=== PATIENT | male | born 1965 | race Caucasian/White ===

== ENCOUNTER 2019-08-04 11:25 | Emergency (ER) | payer OTHER, BC ==
--- NOTE | 2019-08-04 12:16 | EDM.PDOC ---
ED HPI GENERAL MEDICAL PROBLEM - General Chief Complaint: Head Injury Stated Complaint: RT EYEBROW INJURY Time Seen by Provider: 08/04/19 11:47 Source of Information: Reports: Patient, Old Records (that he provided in room) History Limitations: Reports: No Limitations - History of Present Illness INITIAL COMMENTS - FREE TEXT/NARRATIVE: Patient is a 53-year-old male who presents to the ED for the evaluation of a head injury. The patient states that yesterday while at work, at around 8 AM. 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 Patient notes that he was wearing his hard hat, he denies any loss of consciousness, or blacking out. He was evaluated for his laceration yesterday, and this was closed with Steri-Strips. He went to bed last night okay, and woke up this morning, feeling worse, with a headache, some dizziness when standing up or sitting down, a little bit of nausea, but no vomiting, no blurred vision or double vision. He denies being on any sort of blood thinners. He went to a [facility] [place], and was evaluated again by a physician for the injury, and he was directed to come to the ER for a CT scan. Patient is alert and oriented in the room, however at time of triage his pulse is in the upper 40s, he states his normal pulse is in the mid 50s to lower 60s usually. He denies any chest pain or shortness of breath. He notes he does have a primary care provider in his home town, and states he recently had a normal physical. - Related Data Allergies Allergy/AdvReac Type Severity Reaction Status Date / Time No Known Allergies Allergy Verified 08/04/19 11:54 Home Meds: Home Meds Escitalopram [Lexapro] 10 mg PO DAILY 08/04/19 [History] Fexofenadine [Ary] 60 mg PO DAILY 08/04/19 [History] Montelukast [Singulair] 10 mg PO DAILY 08/04/19 [History] Past Medical History Cardiovascular History: Reports: None Respiratory History: Reports: None Genitourinary History: Reports: None Musculoskeletal History: Reports: None Neurological History: Reports: None Psychiatric History: Reports: None Endocrine/Metabolic History: Reports: None Hematologic History: Reports: None Immunologic History: Reports: None Oncologic (Cancer) History: Reports: None Dermatologic History: Reports: None - Infectious Disease History Infectious Disease History: Reports: None - Past Surgical History Head Surgeries/Procedures: Reports: None HEENT Surgical History: Reports: Naso-Sinus Surgery GI Surgical History: Reports: Appendectomy, Hernia Repair/Other Social & Family History - Tobacco Use Smoking Status *Q: Current Every Day Smoker Years of Tobacco use: 35 Packs/Tins Daily: 0.5 - Caffeine Use Caffeine Use: Reports: Coffee - Recreational Drug Use Recreational Drug Use: No ED ROS GENERAL - Review of Systems Review Of Systems: See Below Constitutional: Denies: Fever, Chills HEENT: Reports: No Symptoms Respiratory: Denies: Shortness of Breath Cardiovascular: Denies: Chest Pain Endocrine: Reports: No Symptoms GI/Abdominal: Reports: Nausea. Denies: Abdominal Pain, Vomiting : Reports: No Symptoms Musculoskeletal: Reports: No Symptoms Skin: Reports: Wound (wound to R medial eyebrow, intact with steri strips) Neurological: Reports: Dizziness, Headache. Denies: Confusion, Seizure, Syncope , Trouble Speaking, Difficulty Walking Psychiatric: Reports: No Symptoms Hematologic/Lymphatic: Reports: No Symptoms Immunologic: Reports: No Symptoms ED EXAM, HEAD INJURY - Physical Exam Exam: See Below Exam Limited By: No Limitations General Appearance: Alert, WD/WN, No Apparent Distress Head: Normocephalic, Facial Lacerations (R medial eyebrow laceration intact with steri-strips). No: Joyner's Sign, Raccoon Eyes Nexus Criteria: No: Posterior, Midline Cervical Tenderness, Evidence of Intoxication, Altered Level of Consciousness, Focal Neurological Deficit, Painful Distraction Injuries Eyes: Bilateral Eye: EOMI, Normal Inspection, PERRL Ears: Normal External Exam, Normal Canal, Hearing Grossly Normal, Normal TMs Nose: Normal Inspection Throat/Mouth: Normal Inspection, Normal Lips, Normal Teeth, Normal Gums, Normal Oropharynx, Normal Voice, No Airway Compromise Neck: Non-Tender, Full Range of Motion, Normal Alignment, Normal Inspection Respiratory: No Respiratory Distress, Lungs Clear, Normal Breath Sounds, No Accessory Muscle Use, Chest Non-Tender Cardiovascular: Normal Peripheral Pulses, Regular Rate, Rhythm, No Edema, No Murmur GI/Abdominal Exam: Normal Bowel Sounds, Soft, Non-Tender, No Distention, No Mass Extremities: Normal Inspection, Normal Range of Motion, Normal Capillary Refill 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 Reviewed by myself and Dr. Wick Course - Vital Signs Last Recorded V/S: Last Vital Signs Temp 98.3 F 08/04/19 11:45 Pulse 45 L 08/04/19 11:45 Resp 16 08/04/19 11:45 BP 140/88 08/04/19 11:45 Pulse Ox 99 08/04/19 11:45 - Re-Assessments/Exams Free Text/Narrative Re-Assessment/Exam: 08/04/19 12:17 Patient presents to the ED for evaluation of a closed head injury received while at work. I highly suspect the gentleman may have suffered a concussion, however due to this being a work-related injury. I did order head without contrast CT for further evaluation of possible injury. Regarding his bradycardia, the triage nurse did do an EKG at time of triage, and does demonstrate sinus bradycardia at a rate of 44 bpm, with no other acute ischemic changes or heart blocks noted at this time. Patient states that he has never had an issue with a slow heart rate prior to this. Will recommend that he follow up with his primary care provider for further management of this. 08/04/19 13:[address] is done, demonstrate no acute abnormalities. I discussed this with the patient, he is reassured at this time. I will discharge with general recommendations. Departure - Departure Time of Disposition: 13:46 Disposition: Home, Self-Care 01 Condition: Fair Clinical Impression: Concussion with no loss of consciousness - Discharge Information *PRESCRIPTION DRUG MONITORING PROGRAM REVIEWED*: No *COPY OF PRESCRIPTION DRUG MONITORING REPORT IN PATIENT ANGELLA: No Instructions: Concussion, Adult, [id number] Referrals: PCP,None [Ordering Only Provider] - Forms: ED Department Discharge, ED Return to Work/School Form Additional Instructions: You were evaluated in the ER today regarding your recent head injury. A CT scan of your head was done, and demonstrate no acute abnormalities, your symptoms are most likely due to a concussion in nature. You were given an instructional handout on worrisome signs and symptoms of concussion. Recommend that you try to keep your brain as much rest as possible, limit screen time,etc. Further recommend that you have your heart evaluated by your primary care provider, for the asymptomatic bradycardia you were having today. Please return to the ED if your symptoms should change or worsen.
--- NOTE | 2019-08-04 13:30 | CT ---
Head CT Technique: Multiple axial sections through the brain were obtained. Intravenous contrast was not utilized. Comparison: No prior intracranial imaging is available. Findings: Ventricles along with basal cisterns and sulci over the convexities are within normal limits for the patient's age. No abnormal parenchymal densities are seen. No evidence of intracranial hemorrhage. No midline shift or mass effect is seen. Bone window settings were reviewed which shows no acute calvarial abnormality. Visualized mastoid sinuses and paranasal sinuses show nothing acute. Impression: 1. Nothing acute is appreciated on noncontrast head CT exam. Diagnostic code #1
== END 2019-08-04 13:59 | disposition home or self-care (01) ==
LOC: JD.ED 11:25
DX: S06.0X0A Concussion without loss of consciousness, initial encounter (principal); F17.210 Nicotine dependence, cigarettes, uncomplicated; W01.10XA Fall on same level from slipping, tripping and stumbling with subsequent striking against unspecified object, initial encounter; Y92.89 Other specified places as the place of occurrence of the external cause; Y99.0 Civilian activity done for income or pay
CPT/HCPCS: 70450; 70450-26; 93010; 99283; 99283-25